=== PATIENT | female | born 1990 | race Caucasian/White ===

== ENCOUNTER 2024-12-25 20:04 | Emergency (ER) | payer SELFPAY ==
[~2024-12-25] VITALS: Ht 167.6 cm; Wt 88.9 kg
[2024-12-25] MEDS ORDERED: IBUP-2071 PO (20:51)
[2024-12-25] MEDS ORDERED: AMOX1TAB16 PO (20:51)
[2024-12-25] MEDS ORDERED: ACET-2079 PO (20:51)
--- NOTE | 2024-12-25 20:54 | ERN ---
ED Note History of Present Illness Stated Complaint: TOOTH AND EAR PAIN Chief Complaint: Earache Time Seen by MD: 20:14 Time Seen by Midlevel: 20:30 Dictation: Ms. Flowers is a 34-year-old female with no reported chronic health issues who presented to the emergency department this evening for evaluation of dental pain. She states that four days ago she cracked her left lower molar and now has been experiencing pain to her left jaw/ear, swelling, and fever. States he has been taking frequent doses of ibuprofen which seems to help. She recently moved to the area from [place] and has no PCP or dentist. 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 EYES: Patient denies any visual symptoms. EARS, NOSE, AND THROAT: No difficulties with hearing. No symptoms of rhinitis or sore throat. Denies difficulty swallowing. Reports pain to left jaw, left molar, and left ear x4 days. states she cracked her left lower molar. CARDIOVASCULAR: Patient denies chest pains, palpitations, orthopnea and paroxysmal nocturnal dyspnea. RESPIRATORY: No dyspnea on exertion, no wheezing or cough. GI: No nausea, vomiting, diarrhea, constipation, abdominal pain, hematochezia or melena. : No urinary hesitancy or dribbling. No nocturia or urinary frequency. No abnormal urethral discharge. MUSCULOSKELETAL: No myalgias or arthralgias. NEUROLOGIC: No chronic headaches, no seizures. Patient denies numbness, tingling or weakness. PSYCHIATRIC: Patient denies problems with mood disturbance. No problems with anxiety. ENDOCRINE: No excessive urination or excessive thirst. DERMATOLOGIC: Patient denies any rashes or skin changes. Initial Vital Sign VS Vital Signs Date Time Temp Pulse Resp B/P (MAP) Pulse Ox O2 Delivery O2 Flow Rate FiO2 12/25/24 20:06 99.5 88 18 132/93 98 Room Air 0 Physical Exam Dictation Vital signs: Reviewed. Temp 99.5 Constitutional: No acute distress. Uncomfortable. Accompanied by significant other Head/Face: Normocephalic, atraumatic. Eyes: Periorbital areas with no swelling, redness, or edema. Lids and lashes are normal. Conjunctival injection is absent. Sclera anicteric. Pupils equal, round, reactive to light. ENT: Pinnas intact and no signs of trauma or erythema. Ear canals clear and no discharge. TMs no erythema. No nasal discharge or bleeding noted. Oropharynx w ith no exudate, redness, swelling, masses, exudates, or evidence of obstruction. Uvula midline. Mucous membranes moist. He is able to open and close mouth easily. No dysphasia. Molar 11. Cracked/chipped with large old silver/amalgam filling in place centrally. There is surrounding gingival erythema and edema consistent with localized infection/inflammation. No abscess formation noted at this time. Pain is referred to left ear Neck: Trachea midline, no masses palpated, and no cervical lymphadenopathy. No swelling. Supple, full range of motion. Chest/Axilla: No tenderness, no crepitus, no paradoxical movement, no retractions. Cardiovascular: Regular rate, regular rhythm, no murmur, no gallops. Symmetric pulses. No peripheral edema. Respiratory: Respirations even and unlabored. Lung sounds clear; no wheezes, rales or rhonchi. Room air SpO2 98% Gastrointestinal: Inspection is normal. No distention is appreciated. Bowel sounds are normal. No mass or organomegaly . There is no tenderness. No rebound. No rigidity. No voluntary or involuntary guarding. No Rollins's sign. Neurological: Normal speech, gross motor function intact, gross sensory function intact. No focal weakness/Paresthesia. Musculoskeletal/Extremities: All extremities have full range of motion, no pain or tenderness on palpation. Symmetric pulses. Integumentary: Intact. Skin is normal color, warm and dry. Cap refill less than 2 seconds. ED Course ED Course Vital Signs Date Time Temp Pulse Resp B/P (MAP) Pulse Ox O2 Delivery O2 Flow Rate FiO2 12/25/24 20:06 99.5 88 18 132/93 98 Room Air 0 Uneventful ED course. Vital signs stable; afebrile and normotensive with room air SpO2 98%. Patient has no difficulty swallowing or opening/closing mouth. She has slight swelling to the left jaw. Left ear is clear. She has cracked/chipped with large old filling in place to molar number 17. While in the ED she received doses [place] as well as initial dose of antibiotic Augmentin. Patient provided with list of dentist for follow up Medical Decision Making MDM MDM: Differential diagnosis: Dental abscess, dental kell, otitis media/externa Rationale: Tests considered and ordered secondary to shared decision making include: Examination Previous outside records reviewed: Old ER visits. Risk of complication and/or morbidity or mortality of patient management: None Medications-Per medication reconciliation Need for hospitalization: Patient does not meet criteria for hospitalization. Need for emergency major/minor surgery: No There are no social concerns with this patient. Prescription drug management: Ibuprofen, Augmentin, Tylenol No.3 Prescriptions will include symptomatic care Patient's prior external medical records from other ER visits were reviewed by me as indicated. Prior testing and results from previous visits were reviewed. Prior tests were taken into account with medical decision making and resource utilization, independent historian/historians were used to obtain complete medical history. I independently interpreted the test that were performed, results were reviewed by me and considered findings on radiology if ordered. Medical management and examination interpretation discussions were had by me with other qualified healthcare professionals as indicated for the patient's care. DX & DISP Disposition: Discharge Departure Impression: Primary Impression: Dental infection Additional Impression: Cracked molar #17 Condition: Stable Scripts Acetaminophen with Codeine (Acetaminophen-Cod #3 Tablet) 300 Mg-30 Mg Tablet 1 TAB PO [id number] PRN for pain, #9 TAB 0 Refills Prov: JAIDEN AWAD NP 12/25/24 Amoxicillin/Potassium Clav (Amox Tr-K Clv 875-125 mg Tab) 875 Mg-125 Mg Tablet 1 TAB PO BID for dental infection for 7 Days, #13 TAB 0 Refills Prov: JAIDEN AWAD NP 12/25/24 Ibuprofen (Ibuprofen) 800 Mg Tablet 800 MG PO Q6H PRN for PAIN, #16 TAB 0 Refills Prov: JAIDEN AWAD NP 12/25/24 Additional Instructions: You were seen today pain and swelling around your left lower back tooth. The tooth is cracked with an old feeling, and the gums around it are red and swollen, suggesting a dental infection. Take Augmentin twice daily the next seven days. May take ibuprofen 600 mg every hours as needed. May take Tylenol No. Every12 hours as needed for severe pain. Rinse her mouth with warm saltwater several times a day. Stick to a soft diet until pain improves. [place] your teeth gently and keep area clean. Do not apply heat to the face use cool compresses is swelling bothers you. You will need definitive dental care (filling repair possible root canal, or extraction). Call to schedule an appointment with a dentist within the next 1-2 days. Return to the hospital immediately if you have increased swelling of the face/jaw/neck. Trouble breathing, swallowing, or opening your mouth/draw. High fever or chills. Pain worsening despite medications. Or any new or concerning symptoms. Referrals: SELF,REFERRAL (PCP) Time of Disposition: 20:53 JAIDEN AWAD NP Dec 25, 2024 20:54
--- NOTE | 2024-12-25 21:00 | NUR ---
dc placed at same time med orders medication yet to profile
[2024-12-25 21:04] VITALS: BP 130/85; PULSE 82; RESP 16; TEMP 99.5; O2SAT 98
[2024-12-25] MEDS: AMOX/CLAV 875/125MG TAB PO ONE (21:08)
[2024-12-25] MEDS: HYDROcodone/APAP 5/325 1 TAB TABLET PO ONE (21:08)
== END 2024-12-25 21:21 | disposition home or self-care (01) ==
LOC: EDH 20:04
DX: K04.7 Periapical abscess without sinus (principal); Z90.89 Acquired absence of other organs; Z98.890 Other specified postprocedural states
CPT/HCPCS: 99283